=== PATIENT | female | born 1975 | race Caucasian/White ===

== ENCOUNTER 2017-11-14 18:57 | Emergency (ER) | payer BC ==
[~2017-11-14] VITALS: Ht 157.5 cm; Wt 65.8 kg
--- NOTE | 2017-11-14 19:50 | NUR ---
BIBSELF FROM URGENT CARE FOR LUMBAR PUNCTURE TO R/O MENINGITIS. PT STATES +PHOTOPHOBIA, NECK STIFFNESS/PAIN 8/10, AND PRESSURE LIKE HEADACHE WITH NAUSEA X2.5 WEEKS. PT ABLE TO AMBULATED WITH STEADY GAIT NOTED. PT ABLE TO TURN HEAD L TO R WITH NO S/S OF INCREASE IN PAIN. PT IS AAOX4. VSS. SKIN WNL. NO S/S OF ACUTE DISTRESS NOTED. RESP EVEN AND UNLABORED. PT PLACED ON MEDICAL SCIENCE LIAISON AND POX. PT SAFETY AND COMFORT MEASURES IN PLACE. PT'S BEDSIDE. BEDSIDE FOR EVAL. WILL CONTINUE TO MONITOR PT.
[2017-11-14] MEDS ORDERED: METOCLOPRAMIDE HCL 10 MG/2 ML VIAL IV ONE (20:00)
[2017-11-14] MEDS ORDERED: METOCLOPRAMIDE HCL 10 MG/2 ML VIAL ONE (20:07)
[2017-11-14 20:10] LABS: BASOPHILS % (AUTO) 0.5 % (0.0-2.0); EOSINOPHILS % (AUTO) 0.9 % (0.0-6.0); HEMATOCRIT 39 % (33-45); HEMOGLOBIN 12.9 g/dL (11.5-14.8); LYMPHOCYTES # (AUTO) 1.9 /CMM (0.8-4.8); LYMPHOCYTES % (AUTO) 25.5 % (20.0-44.0); MEAN CORPUSCULAR HGB CONC 33 g/dl (31.0-36.0); MEAN CORPUSCULAR VOLUME 81 fL (82-100); MONOCYTES # (AUTO) 0.4 /CMM (0.1-1.30); MONOCYTES % (AUTO) 5.2 % (2.0-12.0); NEUTROPHILS # (AUTO) 5.2 /CMM (1.8-8.9); NEUTROPHILS % (AUTO) 67.9 % (43.0-81.0); PLATELET COUNT (AUTO) 329 /CMM (150-450); RDW COEFFICIENT OF VARIATION 16.1 (11.5-15.0); RED BLOOD CELL COUNT(AUTO) 4.77 MIL/uL (4.0-5.2); WHITE BLOOD COUNT (AUTO) 7.6 K/uL (4.3-11.0)
[2017-11-14 20:19] LABS: CALCIUM, SERUM 9.3 mg/dL (8.5-10.1); CREATININE 0.8 mg/dL (0.6-1.3); POTASSIUM 3.7 mmol/L (3.5-5.1)
[2017-11-14] MEDS ORDERED: LIDOCAINE /MPF 1% VIAL 5 ML VIAL IJ ONE (21:30)
[2017-11-14] MEDS ORDERED: KETOROLAC TROMETHAMINE INJ 30 MG/ML VIAL ONE (21:39)
[2017-11-14] MEDS ORDERED: MORPHINE SULFATE INJ 4 MG/ML DISP.SYRIN ONE (21:39)
[2017-11-14] MEDS ORDERED: LIDOCAINE HCL/PF 1% 30 ML SDV ONE (21:40)
--- NOTE | 2017-11-14 21:50 | NUR ---
DR. REAGAN AT BEDSIDE FOR LP. CONSENTS SIGNED BY PT.
--- NOTE | 2017-11-14 21:55 | NUR ---
CSF SPECIMEN COLLECTED AND SENT TO LAB
[2017-11-14] MEDS ORDERED: KETOROLAC TROMETHAMINE INJ 30 MG/ML VIAL IV ONE (22:00)
[2017-11-14] MEDS ORDERED: MORPHINE SULFATE INJ 2 MG/ML DISP.SYRIN IV ONE (22:00)
[2017-11-14 22:11] LABS: CSF GLUCOSE 60 mg/dL (40-70); CSF PROTEIN 39.8 mg/dL (15-45)
--- NOTE | 2017-11-14 23:32 | NUR ---
IV removed. Catheter intact and site benign. Pressure and 4x4 applied to site. No bleeding noted. Patient discharged to home in stable condition. Written and verbal after care instructions given. Patient verbalizes understanding of instruction. ambulatory with a steady gait. instructed pt not to drive. pt verbalize understanding. pt accompanied by
[2017-11-14 23:35] VITALS: BP 128/77
[2017-11-18 18:12] LABS: *HSV 1 DNA PCR Negative (Negative); *HSV 2 DNA PCR Negative (Negative)
[2017-11-19 10:12] LABS: *BACT BETA STREP (GROUP B) AG Negative (Negative); *BACT NEISSERIA MENING. AG Negative (Negative); *BACT STREP PNEUMONIAE AG Negative (Negative)
== END 2017-11-14 23:36 | disposition home or self-care (01) ==
LOC: ER 18:59
DX: G44.52 New daily persistent headache (NDPH) (principal); Z60.2 Problems related to living alone
CPT/HCPCS: 36415; 62270; 70450; 80048; 84703; 85025; 87070; 87529; 87802; 87899 ×3; 89051; 96374; 96375; 99285; A4606; A6403; J1885; J2270; J2765; J3490; Z7610